=== PATIENT | female | born 1960 | race Caucasian/White ===

== ENCOUNTER 2023-11-25 18:52 | Emergency (ER) | payer OTHER, SELFPAY ==
[2023-11-25 18:58] VITALS: BP 142/91
[2023-11-25 20:24] VITALS: BP 170/80; BMI 23.5
[2023-11-25 20:32] LABS: Hematocrit 37.6 % (37.0-47.0); Hemoglobin 13.3 g/dL (12.0-16.0); Mean Corp Hgb Conc. 35.4 g/dL (33.0-37.0); Mean Corpuscular Hgb 31.6 pg (27.0-31.0); Mean Corpuscular Volume 89.3 fL (81.0-99.0); Mean Platelet Volume 10.2 fL (7.4-10.4); Platelet Count 165 10^3/uL (130-400); Red Blood Cell Count 4.21 10^6/uL (4.20-5.40); Red Cell Dist. Width 12.5 % (11.5-14.5); White Blood Cell Count 7.8 10^3/uL (4.8-10.8)
--- NOTE | 2023-11-25 20:44 | ED.GENMED ---
History of Present Illness
General
Chief Complaint: Headache
Source: patient
Exam Limitations: none
Time Seen by Provider: 11/25/23 20:12
Travel History
Have you had any contact with someone who has COVID-19?: No
Do you have any symptoms of coronavirus? Fever > 100 degrees, chills, cough, shortness of breath, sore throat, loss of taste or smell, muscle aches, or headache?: No
History of Present Illness
History of Present Illness:
Patient is a 63-year-old female who presents to the ER for evaluation of headaches. Patient started with cold symptoms in mid September and then developed right-sided facial pain green mucus but no fevers. Around the end of September she had a persistent
generalized headache which worsened. She was in [place] visiting family at the time. In the beginning of October she saw her family doctor was placed on 1 antibiotic, cephalosporin for 5 days that did not work and then she was placed on Zithromax
for additional 5 days which still did not relieve her symptoms. She presently is on prednisone and is on day 3. She reports a pressure in her face never leaves but the headache was not so bad yesterday but back severe again today. She reports for
the past month she has not felt herself she has nauseous with this.
She denies any rash. Denies any fevers .
Past History
Past History
ED Past Medical History: None
ED Past Surgical History: None
Social History
Tobacco: Non-smoker
Alcohol: None
Drug: None
Personal:
Living: with family
Employment: Employed
Review of Systems
Review of Systems
Allergies reviewed?: Yes
All Other Systems: ROS reviewed and negative except as documented in HPI and ROS
Constitutional: Reports no symptoms; Denies fever, fatigue or chills
EENT: Reports other (she did have nasal drainage with start of symptoms but has since resolved )
Respiratory: Reports no symptoms
Cardiac: Reports no symptoms
ABD/GI: Reports nausea
: Reports no symptoms
Musculoskeletal: Reports no symptoms
Skin: Reports no symptoms
Hematologic/Lymphatic: Reports no symptoms
Psychiatric: Reports no symptoms
Phy Exam
General Physical Exam
General Presentation: no apparent distress
General age: appears stated age
General Skin: warm and dry
General Habitus: normal
General Mental: alert
General Hydration: appears well hydrated
ENT Exam
ENT Exam: EOMI, neck supple and pharyngeal erythema
Eye Exam
Eye Exam: PERRL and EOMI
Eye Exam General: PERRL: bilateral and EOM intact: bilateral
Pupil Exam: Bilateral: round and reactive
Neurological Exam
Neurological Exam: alert, oriented x3, no motor deficits and no sensory deficits
Loren Coma Scale
Eye Opening: Spontaneous
Verbal Response: Oriented
Motor Response: Obeys Commands
GCS Total Score: 15
Musculoskeletal Exam
Musculoskeletal Exam: full ROM and other (no facial tenderness ; non tender to b/l temples )
Skin Exam
Skin Exam: normal color and warm/dry
Psychiatric Exam
Psychiatric Exam: normal mood/affect
Course
Orders/Labs/Results
Orders:
Orders
11/25/23 20:25
CMP [Comprehensive Metabolic Panel] Urgent
Complete Blood Count/No Diff Urgent
11/25/23 20:46
CT Head W/o Iv Contrast Urgent
Comment:
Reason For Exam: headache
Abnormal Lab Results
11/25/23
20:25
MCH 31.6 H pg
(27.0-31.0)
BUN 19 H mg/dl
(7-17)
Glucose 156 H mg/dl
(70-99)
11/25/23 20:25
11/25/23 20:25
Vital Signs
Initial and Last Documented VS:
Initial Vital Signs
Temp Pulse Resp BP Pulse Ox
98.2 F 86 19 142/91 98
11/25/23 18:58 11/25/23 18:58 11/25/23 18:58 11/25/23 18:58 11/25/23 18:58
Last Documented Vital Signs
Temp Pulse Resp BP Pulse Ox
98.2 F 65 11 138/78 98
11/25/23 18:58 11/25/23 21:15 11/25/23 21:15 11/25/23 21:00 11/25/23 21:15
MDM/Problems Addressed
MDM/Problems Addressed:
Patient is a 63-year-old female has headache for the past several weeks. She started with sinus pressure drainage. She was on 2 separate antibiotics over this course of time and on day 3 of prednisone prescribed by her family doctor. She presents
to the ER stating she does not like taking medications. She denies any recent fevers. She presents awake alert no acute distress no meningismus no recent trauma no blood thinners. She has no visual deficit complaints. She is nontoxic on arrival
and did not want anything for discomfort. CAT scan was performed and negative for hemorrhage the paranasal sinuses and mastoid air cells are clear.
I reviewed findings with patient. Did offer patient Toradol for symptoms and also migraine type cocktail however she declines. I did recommend that she tries ivvj-vlc-iunvzta decongestants which she has not tried any with Excedrin Migraine. She
is planning on follow-up with ENT and was given information. She is stable for discharge home
*Radiology
Radiology exam reviewed: radiology read reviewed
*Pulse Oximetry
Patient hypoxic: no
*Critical Care Note
Total Time (30-74mins, 75-104mins- exclusive of procedures): Not Applicable
ED Attending Note
-
Portions of this chart may have been created with voice recognition software.� Occasional wrong word or��sound alike� substitutions may have occurred due to the inherent limitations of voice recognition software.
Discharge Plan
Departure
Patient Disposition: Home (Routine Discharge)
Date of Disposition: 11/25/23
Time of Disposition: 22:57
Patient with high blood pressure during this ER visit?: Yes
Condition: Fair
Covid-19: Not Applicable
Discharge Problem:
Headache
Instructions: Headache, Adult (DC), BLOOD PRESSURE
Referrals:
Judah Tong MD [Active] -
Corin Pérez CRNP [Family Provider] -
Activity Restrictions/Additional Instructions:
As discussed you may take Claritin daily or Zyrtec-D.
Keep well-hydrated. You may try [id number] Excedrin migraine. Follow-up with your family doctor in the next several days as well as ENT.
Return if any worsening of symptoms.
Interventions
Interventions:
*Risk Screen - Suicide Last Done: 11/25/23 18:58
*General Assessment Last Done: 11/25/23 18:58
*Neglect/Abuse Screening Last Done: 11/25/23 18:58
*ED COVID-19 Vaccine History Last Done: 11/25/23 18:58
ED- Neurological Assessment Last Done: 11/25/23 21:29
Discharge Date and Time
Print Language: ALBANIAN
[2023-11-25 21:00] VITALS: BP 138/78
[2023-11-25 21:06] LABS: ALT (SGPT) 21 U/L (0-35); AST (SGOT) 26 U/L (14-36); Albumin 4.9 g/dl (3.5-5.0); Alkaline Phosphatase 66 U/L (38-126); Blood Urea Nitrogen 19 mg/dl (7-17); Calcium 10.2 mg/dl (8.4-10.2); Carbon Dioxide 26 mmol/L (22-30); Chloride 104 mmol/L (98-107); Estimated Creatinine Clearance 76 ml/min; Glucose 156 mg/dl (70-99); Potassium 3.9 mmol/L (3.5-5.1); Sodium 137 mmol/L (135-145); Total Bilirubin 0.4 mg/dl (0.2-1.3); Total Protein 7.4 g/dl (6.3-8.2); eGFR > 60.00
[2023-11-25 22:00] VITALS: BP 129/67
[2023-11-25 23:00] VITALS: BP 130/76
== END 2023-11-25 23:16 | disposition home or self-care (01) ==
LOC: EMR 18:52
PROVIDERS: Nurse Practitioner; EMERGENCY PHYSICIAN Emergency Medicine; FAMILY PHYSICIAN Nurse Practitioner Family
DX: R51.9 Headache, unspecified (principal)
CPT/HCPCS: 99284; 70450; 80053; 85027

== ENCOUNTER 2024-06-14 14:59 | Emergency (ER) | payer OTHER, SELFPAY ==
[2024-06-14 15:02] VITALS: BP 141/94
[2024-06-14 15:37] LABS: % Basophils 0.2 % (0-2); % Eosinophils 1.6 % (0-6); % Immature Granulocytes 0.2 % (0-0.5); % Lymphocytes 25.1 % (20.5-51.1); % Neutrophils 65.9 % (42.2-75.2); Absolute Eosinophils 0.1 10^3/uL (0-0.7); Absolute Lymphocytes 1.4 10^3/uL (1.2-3.4); Absolute Monocytes 0.4 10^3/uL (0.1-0.6); Absolute Neutrophils 3.6 10^3/uL (1.4-6.5); Hemoglobin 13.1 g/dL (12.0-16.0); Mean Corp Hgb Conc. 34.5 g/dL (33.0-37.0); Mean Corpuscular Hgb 31.2 pg (27.0-31.0); Mean Corpuscular Volume 90.5 fL (81.0-99.0); Mean Platelet Volume 10.4 fL (7.4-10.4); Nucleated Red Blood Cells % 0 %; Platelet Count 157 10^3/uL (130-400); Red Cell Dist. Width 12.3 % (11.5-14.5); White Blood Cell Count 5.5 10^3/uL (4.8-10.8)
[2024-06-14 15:50] LABS: ALT (SGPT) 19 U/L (0-35); AST (SGOT) 24 U/L (14-36); Albumin 4.5 g/dl (3.5-5.0); Alkaline Phosphatase 49 U/L (38-126); Blood Urea Nitrogen 14 mg/dl (7-17); Calcium 9.7 mg/dl (8.4-10.2); Carbon Dioxide 29 mmol/L (22-30); Chloride 103 mmol/L (98-107); Glucose 111 mg/dl (70-99); Potassium 3.8 mmol/L (3.5-5.1); Sodium 141 mmol/L (135-145); Total Bilirubin 0.3 mg/dl (0.2-1.3); Total Protein 6.8 g/dl (6.3-8.2); eGFR > 60.00
--- NOTE | 2024-06-14 16:12 | ED.GENMED ---
History of Present Illness
General
Chief Complaint: Dizziness
Time Seen by Provider: 06/14/24 16:12
History of Present Illness
History of Present Illness:
TIME OF INITIAL ENCOUNTER: 4:20 PM
HPI: The patient had abrupt onset vertiginous symptoms 5 days ago. She saw her primary care doctor 2 days ago and was able to get into see physical therapy later that day. She did have particle repositioning treatment as she had a positive
Cold[place]-Hallpike maneuver and initially felt better. Yesterday and today she felt somewhat worse. She was encouraged to go to the Emergency Department for further evaluation. However, patient does not think that her symptoms were bad enough to
warrant ED evaluation.
EXAM:
GENERAL: Well appearing in no distress
HEENT: Moist oral mucosa
CARDIOVASCULAR: No murmurs, normal heart rate, regular rhythm, No chest wall tenderness
PULMONARY: No respiratory distress, breath sounds are clear and equal
ABDOMEN: Soft with no peritoneal signs, no tenderness
NEUROLOGIC: Excellent strength all extremities, no coordination deficits, normal finger-nose, normal wpxy-ai-[id number] testing, no spontaneous nystagmus
PSYCHIATRIC: Appropriate mental status, normal insight and judgement
EXTREMITIES: Nontender, no edema, moves all extremities equally
SKIN: No rash, no lesions
NUMBER AND COMPLEXITY OF PROBLEMS ADDRESSED AT THE ENCOUNTER
� Chronic conditions affecting care: Migraines
� Acute Exacerbation and/or Progression of Chronic Illness: This is an acute problem
� Differential Diagnosis includes: Positional vertigo, CVA very unlikely based on examination, electrolyte abnormality, dehydration, SHAD
AMOUNT AND/OR COMPLEXITY OF DATA TO BE REVIEWED AND ANALYZED
� I performed an independent evaluation of and my interpretation is:
EKG: Sinus 68, normal axis, no acute ST abnormality
CT:
X-rays:
Laboratory Studies: CBC unremarkable, chemistries unremarkable
Other:
� Review of other/old records: I reviewed PT notes which indicates that they felt that she had positional vertigo and improved after repositioning maneuvers; the patient had a CAT scan of the brain in Crys of this year which was
unremarkable
� Clinical information was obtained by an independent historian: None needed
� Prescriptions/Medications Considered but not given:
� Further testing considered but not performed: As patient has new symptoms considered neuroimaging however after discussion with patient we agreed to hold off on any neuroimaging at this time as she has an NIH equals 0
RISK OF COMPLICATIONS AND/OR MORBIDITY OR MORTALITY OF PATIENT MANAGEMENT
� Social determinants of health affecting care: Lives at home
� Discussion with other providers: At 4:30 PM, I have asked physical therapy to come down to work with the patient again
� Escalation of care including admission/observation vs risk of discharge considered:
ANY OTHER UPDATES:
5:40 PM: Physical therapy did come down to evaluate the patient but ultimately patient did not go through the Jose maneuver again. Overall she has a nonfocal neurologic examination and is well-appearing without any significant distress at time of
discharge. I have also given the information for local neurologist as well. She questioned MS however her symptoms are not related to vision changes or motor loss.
Past History
Past History
ED Past Medical History: None
ED Past Surgical History: None
Social History
Tobacco: Non-smoker
Alcohol: None
Drug: None
Personal:
Living: with family
Employment: Employed
Phy Exam
Physical Exam
Physical Exam:
See HPI
Course
Orders/Labs/Results
Orders:
Orders
06/14/24 15:04
Electrocardiogram (*1) Urgent
Reason for Study: Vertigo / Dizzy
EKG- Treatment ONCE
06/14/24 15:31
Complete Blood Count/With Diff Urgent
Comprehensive Metabolic Panel Urgent
06/14/24 16:30
Physical Therapy Consult [Pt Eval And Treat] Urgent
Treatment: particle repositioning
Activity Level: Ambulate
Abnormal Lab Results
06/14/24
15:31
MCH 31.2 H pg
(27.0-31.0)
Glucose 111 H mg/dl
(70-99)
06/14/24 15:31
06/14/24 15:31
Vital Signs
Initial and Last Documented VS:
Initial Vital Signs
Temp Pulse Resp BP Pulse Ox
98.4 F 77 18 141/94 98
06/14/24 15:02 06/14/24 15:02 06/14/24 15:02 06/14/24 15:02 06/14/24 15:02
Last Documented Vital Signs
Temp Pulse Resp BP Pulse Ox
98.4 F 77 18 161/92 98
06/14/24 15:02 06/14/24 15:02 06/14/24 15:02 06/14/24 17:06 06/14/24 15:02
*Critical Care Note
Total Time (30-74mins, 75-104mins- exclusive of procedures): Not Applicable
ED Attending Note
-
Portions of this chart may have been created with voice recognition software.� Occasional wrong word or��sound alike� substitutions may have occurred due to the inherent limitations of voice recognition software.
Discharge Plan
Departure
Patient Disposition: Home (Routine Discharge)
Date of Disposition: 06/14/24
Time of Disposition: 17:37
Patient with high blood pressure during this ER visit?: Yes
Discharge Problem:
Vertigo
Instructions: Vertigo (a Type of Dizziness) (DC), Dizziness
Referrals:
Manuel Figueredo MD [Active] - Call in 1-3 days for appt
Activity Restrictions/Additional Instructions:
The cause of your symptoms may be related to positional vertigo. However your neurologic examination is normal. I reviewed the CAT scan of your brain that you had earlier this year that was unremarkable. EKG is unremarkable. Blood work is
normal. Follow-up your primary care doctor and I have also given the contact information for a local neurologist. Return here if worse or other concerns.
Interventions
Interventions:
*Risk Screen - Suicide Last Done: 06/14/24 15:04
*General Assessment Last Done: 06/14/24 15:02
*Neglect/Abuse Screening Last Done: 06/14/24 15:02
Discharge Date and Time
Print Language: MALTESE
[2024-06-14 17:06] VITALS: BP 161/92
[2024-06-14 17:09] VITALS: BP 185/79
[2024-06-14 18:01] VITALS: BP 161/92
== END 2024-06-14 18:02 | disposition home or self-care (01) ==
LOC: EMR 14:59
PROVIDERS: EMERGENCY PHYSICIAN Emergency Medicine; FAMILY PHYSICIAN Physician Assistant Medical
DX: R42 Dizziness and giddiness (principal); R03.0 Elevated blood-pressure reading, without diagnosis of hypertension
CPT/HCPCS: 99284; 80053; 85025; 93005

== ENCOUNTER 2024-06-15 11:54 | Outpatient (RCR) | payer OTHER, SELFPAY | END 2024-06-15 23:59 | disposition home or self-care (01) | LOC: RPT 11:54 | PROVIDERS: ATTENDING PHYSICIAN Physician Assistant Medical | DX: H81.12 Benign paroxysmal vertigo, left ear (principal); Z73.6 Limitation of activities due to disability | CPT/HCPCS: 97112; 97162 ==

== ENCOUNTER → 2025-06-08 13:50 | Outpatient (REF) | payer OTHER, SELFPAY | LOC: HWRAD 13:50 | PROVIDERS: ATTENDING PHYSICIAN Obstetrics & Gynecology Gynecology; FAMILY PHYSICIAN Physician Assistant Medical | DX: R10.20 Pelvic and perineal pain unspecified side (principal) | CPT/HCPCS: 76830; 76856 ==

== ENCOUNTER → 2025-07-09 14:52 | Outpatient (REF) | payer OTHER, SELFPAY | LOC: WDC 14:52 | PROVIDERS: ATTENDING PHYSICIAN Physician Assistant Medical | DX: Z12.31 Encounter for screening mammogram for malignant neoplasm of breast (principal) | CPT/HCPCS: 77063; 77067 ==